=== PATIENT | female | born 1960 | race Caucasian/White ===

== ENCOUNTER → 2018-07-22 | Outpatient (CLI) | payer BC | LOC: COL.RAD 08:55 | DX: S73.191A Other sprain of right hip, initial encounter (principal) | CPT/HCPCS: A9585; Q9967 ==

== ENCOUNTER → 2018-09-05 | Outpatient (CLI) | payer BC | LOC: COL.RAD 09-01 08:00 | DX: M25.551 Pain in right hip (principal) | CPT/HCPCS: J3301; Q9967 ==

== ENCOUNTER → 2019-01-09 | Outpatient (CLI) | payer BC | LOC: COL.RAD 08:44 | DX: M25.551 Pain in right hip (principal) | CPT/HCPCS: J3301; Q9967 ==

== ENCOUNTER → 2019-04-24 | Outpatient (CLI) | payer BC | LOC: COL.RAD 04-17 13:00 | DX: M25.551 Pain in right hip (principal) | CPT/HCPCS: J3301; Q9967 ==

== ENCOUNTER → 2019-10-09 | Outpatient (CLI) | payer BC | LOC: COL.RAD 09:46 | DX: M25.551 Pain in right hip (principal) | CPT/HCPCS: J3301; Q9967 ==

== ENCOUNTER → 2020-02-01 | Outpatient (CLI) | payer BC | LOC: COL.RAD 08:52 | DX: M25.551 Pain in right hip (principal) | CPT/HCPCS: J3301; Q9967 ==

== ENCOUNTER → 2020-07-30 | Outpatient (CLI) | payer BC | LOC: COL.RAD 08:00 | DX: M25.551 Pain in right hip (principal) | CPT/HCPCS: J3301; Q9967 ==

== ENCOUNTER → 2020-12-13 | Outpatient (CLI) | payer OTHER | LOC: COL.RAD 12-12 10:30 | DX: M25.551 Pain in right hip (principal) | CPT/HCPCS: J3301; Q9967 ==

== ENCOUNTER → 2021-04-23 | Outpatient (CLI) | payer OTHER | LOC: COL.RAD 12:31 | DX: M25.551 Pain in right hip (principal) | CPT/HCPCS: J3301; Q9967 ==

== ENCOUNTER 2021-08-10 18:01 | Emergency (ER) | payer SELFPAY ==
[~2021-08-10] VITALS: Ht 175.3 cm; Wt 120.5 kg
[2021-08-10 18:15] VITALS: BP 139/79; PULSE 79; TEMP 98
== END 2021-08-10 20:20 | disposition home or self-care (01) ==
LOC: COL.ER 18:01
DX: M25.532 Pain in left wrist (principal); M25.522 Pain in left elbow; I10 Essential (primary) hypertension; W01.0XXA Fall on same level from slipping, tripping and stumbling without subsequent striking against object, initial encounter; Y92.480 Sidewalk as the place of occurrence of the external cause

== ENCOUNTER 2022-04-24 16:40 | Emergency (ER) | payer OTHER ==
[~2022-04-24] VITALS: Ht 175.3 cm; Wt 122.7 kg
[2022-04-24 17:33] LABS: BASO # 0.1 K/mm3 (0.0-0.2); BASO % 0.7 % (0.0-2.0); EOS # 0.2 K/mm3 (0.0-0.7); EOS % 2.5 % (0.0-4.0); GRAN # 4.2 K/mm3 (1.4-6.5); GRAN % 56.3 % (42.2-75.2); HEMATOCRIT 47.1 % (37.0-47.0); HEMOGLOBIN 16.1 g/dl (12.5-16.0); LYMPH # 2.4 K/mm3 (1.2-3.4); LYMPH % 31.4 % (20.0-51.0); MEAN CELL VOLUME 92 fl (80.0-100.0); MEAN CORPUSCULAR HEMOGLOBIN 32 pg (27-31); MEAN CORPUSCULAR HGB CONC 34 g/dl (33.0-37.0); MEAN PLATELET VOLUME 9.7 fl (7.4-10.4); MONO # 0.7 K/mm3 (0.1-0.6); PLATELET COUNT 271 K/mm3 (130-400); REDCELL DISTRIBUTION WIDTH-CV 12.3 % (11.5-14.5)
[2022-04-24 17:40] LABS: INR 0.9 (0.8-3.0); PROTHROMBIN TIME 10.6 SECONDS (9.7-12.8)
[2022-04-24 17:42] LABS: PARTIAL THROMBOPLASTIN TIME 37.3 SECONDS (26.0-37.0)
[2022-04-24 17:49] LABS: ALANINE AMINOTRANSFERASE 52 U/L (0-55); ALBUMIN 4.1 gm/dL (3.5-5.0); ALKALINE PHOSPHATASE 89 U/L (40-150); ANION GAP 12 mmol/L (7-16); AST,SGOT 34 U/L (5-34); BILIRUBIN,TOTAL 0.3 mg/dL (0.2-1.2); BLOOD UREA NITROGEN 15 mg/dL (10-20); CALCIUM 9.3 mg/dL (8.4-10.2); CARBON DIOXIDE 23 mmol/L (22-29); CHLORIDE 108 mmol/L (98-107); CREATININE, serum 0.77 mg/dL (0.57-1.11); GLUCOSE 98 mg/dL (70-99); POTASSIUM 4.5 mmol/L (3.5-4.5); SODIUM 143 mmol/L (136-145); TOTAL PROTEIN 7.6 gm/dL (6.2-8.1)
[2022-04-24 17:55] LABS: TROPONIN-I < 0.010 ng/mL (0.00-0.033)
[2022-04-24 18:50] VITALS: BP 141/65; PULSE 86
== END 2022-04-24 18:50 | disposition home or self-care (01) ==
LOC: COL.ER 16:40
PROVIDERS: Emergency Medicine
DX: I49.3 Ventricular premature depolarization (principal); R00.2 Palpitations; R60.0 Localized edema; Z79.899 Other long term (current) drug therapy